=== PATIENT | female | born 1985 | race Two or more races ===

== ENCOUNTER 2024-03-28 11:04 | Emergency (ER) | payer MEDICAID, OTHER ==
[~2024-03-28] VITALS: Ht 165.1 cm; Wt 114.4 kg
[2024-03-28 12:58] VITALS: BP 127/82; PULSE 77; RESP 16; TEMP 98.7; O2SAT 98
[2024-03-28] MEDS: KETOROLAC TROMETH 60MG/2ML VIAL IM ONE (13:07)
[2024-03-28] MEDS ORDERED: NAPR-746 PO (13:41)
[2024-03-28] MEDS ORDERED: BACL10TA PO (13:41)
== END 2024-03-28 13:53 | disposition home or self-care (01) ==
LOC: ER 11:04
DX: S16.1XXA Strain of muscle, fascia and tendon at neck level, initial encounter (principal); M25.511 Pain in right shoulder; Z88.0 Allergy status to penicillin; X58.XXXA Exposure to other specified factors, initial encounter; Y93.89 Activity, other specified; Y92.89 Other specified places as the place of occurrence of the external cause; Y99.8 Other external cause status
CPT/HCPCS: 72040; 96372; 99283; J1885